=== PATIENT | female | born 1945 | race Caucasian/White ===

== ENCOUNTER 2020-07-12 13:25 | Outpatient (CLI) | payer MEDICARE, SELFPAY ==
[2020-07-12 13:52] LABS: Hematocrit 40.5 % (37.0-47.0)
== END 2020-07-12 13:26 | disposition home or self-care (01) ==
PROVIDERS: Anesthesiology; PCP Emergency Medicine; Visit Provider Urology
DX: R32 Unspecified urinary incontinence (principal); D64.9 Anemia, unspecified
CPT/HCPCS: 36415; 85014; 85018; 87086

== ENCOUNTER 2020-07-16 00:16 | Outpatient (CLI) | payer MEDICARE, SELFPAY ==
[2020-07-16 18:02] LABS: SARS-CoV-2 RNA PCR Negative
== END 2020-07-16 00:17 | disposition home or self-care (01) ==
LOC: ANHCOVIDDT 00:16
PROVIDERS: PCP Emergency Medicine; Visit Provider Urology
DX: Z01.812 Encounter for preprocedural laboratory examination (principal); Z20.828 Contact with and (suspected) exposure to other viral communicable diseases
CPT/HCPCS: 87635; C9803; U0003

== ENCOUNTER 2020-07-19 01:21 | Day surgery (SDC) | payer MEDICARE, SELFPAY ==
[2020-07-07 11:22] VITALS: BMI 41.8
--- NOTE | 2020-07-18 17:19 | PM.IMHP ---
H&P: HPI History of Present Illness Date/Time: 07/18/20 17:19 Chief complaint: ISD Narrative: Dawn García is a 75 year old female with ISD type incontinence as well as OAB Review of Systems Review of Systems: All systems reviewed & are unremarkable except as noted in HPI and below PMFSH Social History Social History Smoking status: Never smoker Alcohol intake: current Spiritual care concerns: No Meds Home Medications and Allergies Home Medications Medication Instructions Recorded Confirmed Type acetaminophen [Tylenol] 325 mg PO PRN PRN 07/07/20 07/07/20 History aspirin 81 mg PO DAILY 07/07/20 07/07/20 History atenolol 50 mg PO QAM 07/07/20 07/07/20 History chlorthalidone 25 mg QAM 07/07/20 07/07/20 History cholecalciferol (vitamin D3) 50 mcg PO DAILY 07/07/20 07/07/20 History duloxetine [Cymbalta] 60 mg PO BID 07/07/20 07/07/20 History esomeprazole magnesium [Nexium] 20 mg PO DAILY 07/07/20 07/07/20 History ferrous sulfate 325 mg PO HS 07/07/20 07/07/20 History gabapentin 300 mg PO TID 07/07/20 07/07/20 History hydroxychloroquine 200 mg PO BID 07/07/20 07/07/20 History leflunomide [Arava] 20 mg PO DAILY 07/07/20 07/07/20 History levothyroxine 50 mcg PO DAILY 07/07/20 07/07/20 History losartan 100 mg PO HS 07/07/20 07/07/20 History lutein-zeaxanthin 1 cap PO QAM 07/07/20 07/07/20 History methocarbamol 500 mg PO TID 07/07/20 07/07/20 History peg 400-propylene glycol (PF) 1 drp OPHTHALMIC (EYE) TID 07/07/20 07/07/20 History [Systane (PF)] simvastatin 40 mg PO HS 07/07/20 07/07/20 History tramadol 25 mg PO PRN PRN 07/07/20 07/07/20 History Allergies Allergy/AdvReac Type Severity Reaction Status Date / Time ketorolac Allergy Unknown RED SKIN Verified 07/07/20 10:36 prochlorperazine Allergy Unknown CONVULSIONS Verified 07/07/20 10:36 Exam Const: General: no acute distress HENMT: Mouth: Yes moist mucous membranes Eyes: EOM: EOMs intact bilaterally Neck: Neck: supple Resp: Effort & Inspection: normal respiratory effort GI: GI Palp: Yes Soft to palpation Skin: General skin exam: normal color Neuro: Cognition (Neuro): normal cognition Extrem: General: normal to inspection Psych: Mental Status: mental status grossly normal Assessment and Plan Assessment and plan (1) Intrinsic (urethral) sphincter deficiency (ISD): Code(s): N36.42 - Intrinsic sphincter deficiency (ISD) Status: Acute Assessment and Plan: cystoscopy with bulking agent
[2020-07-19 06:36] VITALS: BP 118/83; PULSE 71; RESP 20; TEMP 35.9; O2SAT 100
--- NOTE | 2020-07-19 06:46 | WPDANESEPPF ---
Anes - Initial Pre Proc Eval Procedure: Operation Date: 07/19/20 07:30 Proposed Procedures p Cystoscopy with Bulking Agent - Devaughn Lake MD Date/Time: 07/19/20 06:46 Surgeon: Devaughn Lake MD Pre Op Diagnosis: ISD Patient Data Age: 75 Gender: F Height: 4 ft 8 in Weight: 84.54 kg Allergies Allergy/AdvReac Type Severity Reaction Status Date / Time ketorolac Allergy Unknown BRIGHT RED Verified 07/19/20 06:49 SKIN prochlorperazine Allergy Unknown CONVULSIONS Verified 07/19/20 06:49 Home Medications Medication Instructions Recorded Confirmed Type acetaminophen [Tylenol] 325 mg PO PRN PRN 07/07/20 07/07/20 History aspirin 81 mg PO DAILY 07/07/20 07/07/20 History atenolol 50 mg PO QAM 07/07/20 07/07/20 History chlorthalidone 25 mg QAM 07/07/20 07/07/20 History cholecalciferol (vitamin D3) 50 mcg PO DAILY 07/07/20 07/07/20 History duloxetine [Cymbalta] 60 mg PO BID 07/07/20 07/07/20 History esomeprazole magnesium [Nexium] 20 mg PO DAILY 07/07/20 07/07/20 History ferrous sulfate 325 mg PO HS 07/07/20 07/07/20 History gabapentin 300 mg PO TID 07/07/20 07/07/20 History hydroxychloroquine 200 mg PO BID 07/07/20 07/07/20 History leflunomide [Arava] 20 mg PO DAILY 07/07/20 07/07/20 History levothyroxine 50 mcg PO DAILY 07/07/20 07/07/20 History losartan 100 mg PO HS 07/07/20 07/07/20 History lutein-zeaxanthin 1 cap PO QAM 07/07/20 07/07/20 History methocarbamol 500 mg PO TID 07/07/20 07/07/20 History peg 400-propylene glycol (PF) 1 drp OPHTHALMIC (EYE) TID 07/07/20 07/07/20 History [Systane (PF)] simvastatin 40 mg PO HS 07/07/20 07/07/20 History tramadol 25 mg PO PRN PRN 07/07/20 07/07/20 History Patient hx anesthesia problems: none Family hx anesthesia problems: none PMF Past Medical History Medical History (Updated 07/19/20 @ 06:52 by Gus Pinon MD) Anxiety Fusion of spine HTN (hypertension) Hyperlipidemia Morbid obesity Pes planus of right foot Surgical History Surgical History (Updated 07/19/20 @ 06:48 by Gus Pinon MD) History of section History of total knee arthroplasty Family History Family History Sibling Family history of rheumatoid arthritis Family history of arthritis Family history of Parkinson's disease Mother Cerebrovascular accident Family history of arthritis Family history of malignant neoplasm of breast in first degree relative Father Family history of diabetes mellitus in first degree relative Other Hypertension Social History Social History Smoking status: Never smoker Alcohol intake: current Living arrangements: with family Spiritual care concerns: No Anes - Eval Final PreProcedure Day of Procedure 07/19/20 06:46 Patient weight: morbidly obese Heart: regular rate and rhythm Lungs: clear to auscultation Airway: Mallampati scale class II Neurological: alert and oriented Last oral intake: >/= 8 hours ASA classification: III Emergent: no Anesthetic plan: proceed Anesthesia type and monitoring: general GIVS Informed Consent: The patient's anesthetic plan and its attendant risks and benefits were discussed with the patient/family/POA. Questions were solicited and answers provided to the satisfaction of the patient/family/POA.
[2020-07-19] MEDS: LACTATED RINGERS 1,000 ML 30 ML IV CONT (06:58)
--- NOTE | 2020-07-19 07:19 | WPDHPUPDATE1 ---
History and Physical Update Update Date/Time: 07/19/20 07:19 History and Physical has been reviewed, including an updated exam of the patient. There are NO changes in the patient's condition. Risks, benefits, and alternatives have been discussed and questions answered. Patient agrees to proceed with procedure.
[2020-07-19] MEDS: ceFAZolin 2 GM/D5W 50 ML 2 GM/50 ML BAG IVPB (07:30)
[2020-07-19] MEDS: LIDOCAINE HCL 2% GEL UROJET 10 ML PKG MUCOUS MEM (07:41)
[2020-07-19 07:55] VITALS: BP 119/74; PULSE 60; RESP 16; O2SAT 99
--- NOTE | 2020-07-19 08:11 | PM.PROC ---
Procedure Note - Detailed Date of procedure: 07/19/20 Pre-op diagnosis: ISD Intrinsic sphincter deficiency Post-op diagnosis: same Procedure performed: Cystoscopy with implantation of suburethral implant material [id number] Description of procedure: She was correctly identified and informed consent was obtained. She was brought to the operating room. She was given mac anesthesia. She was placed in the dorsal lithotomy position. She was prepped and draped in a sterile fashion. A time-out performed. Cystoscopy revealed no tumors in the bladder and an open urethra consistent with intrinsic sphincter deficiency. I injected the bulking agent into the urethra at the 10:00 a.m. to o'clock and 6 o'clock position. There is excellent bulking effect. Her bladder was drained with a 12 Romansh red rubber catheter. The tissues were somewhat firm and had difficulty taking the bulking agent. I used a 1-1/2 syringes total. She was awakened and transferred to the PACU in stable condition. Implants: Macroplastique Anesthesia: MAC Surgeon: Devaughn Lake MD Drains: No Packing: No Pathology: none sent Complications: No immediate complications Condition: stable Disposition: PACU
[2020-07-19 08:25] VITALS: BP 152/81; PULSE 64; RESP 16
[2020-07-19 08:55] VITALS: BP 131/89; PULSE 63; RESP 18
[2020-07-19] MEDS: fentaNYL CITRATE INJ (*CRX) 100 MCG/2 ML VIAL 25 MCG IV PUSH (08:55)
[2020-07-19 09:25] VITALS: BP 158/80; PULSE 59; RESP 16
== END 2020-07-19 09:56 | disposition home or self-care (01) ==
PROVIDERS: PCP Emergency Medicine; Visit Provider Urology
PROC: 3E0K8GC Introduction of Other Therapeutic Substance into Genitourinary Tract, Via Natural or Artificial Opening Endoscopic (ICD-10-PCS; CPT 51715; principal; 2020-07-19 07:30)
DX: N36.42 Intrinsic sphincter deficiency (ISD) (principal); N32.81 Overactive bladder; E66.01 Morbid (severe) obesity due to excess calories; Z68.41 Body mass index [BMI] 40.0-44.9, adult; I10 Essential (primary) hypertension; Z98.1 Arthrodesis status
CPT/HCPCS: 51715; A9270; J0690; J2250; J2405; J2704; J3010; J7120; L8606

== ENCOUNTER 2021-06-01 09:42 | Outpatient (CLI) | payer MEDICARE, SELFPAY ==
--- NOTE | ~2021-06-01 | MM_ITS ---
EXAMINATION: MM screening maral BI w oneil HISTORY: Screening TECHNIQUE: Craniocaudal and mediolateral oblique 3-D tomosynthesis images were obtained and synthetic 2-D images were generated. CAD analysis was submitted and interpreted. COMPARISON: Comparison to multiple prior studies sequentially, with oldest reviewed study dated 09/22. BREAST PARENCHYMAL COMPOSITION: There are scattered areas of fibroglandular density. FINDINGS: Stable architectural distortion of both breasts, consistent with previous breast reduction surgery. There is no evidence of suspicious mass, calcification, or architectural distortion to sugge st malignancy in either breast. There has been no suspicious interval change. IMPRESSION: 1. No mammographic evidence of malignancy. 2. Recommend routine screening mammography in one year. BI-RADS Category 1: Negative Reviewed, dictated and finalized at location A.
== END 2021-06-01 09:43 | disposition home or self-care (01) ==
LOC: ANHIMG 09:45
PROVIDERS: PCP Emergency Medicine; Visit Provider Emergency Medicine
DX: Z12.31 Encounter for screening mammogram for malignant neoplasm of breast (principal)
CPT/HCPCS: 77063; 77067

== ENCOUNTER 2021-09-02 08:58 | Outpatient (CLI) | payer MEDICARE, SELFPAY ==
[2021-09-02 09:56] LABS: Hematocrit 36.2 % (37.0-47.0)
[2021-09-02 10:06] LABS: Anion Gap 10 mmol/L (8-16); Blood Urea Nitrogen 36 mg/dL (7-17); Calcium 10.1 mg/dL (8.4-10.2); Carbon Dioxide 33 mmol/L (22-30); Chloride 98 mmol/L (98-107); Estimated Glomerular Filt Rate 31; Glucose 151 mg/dL (65-110); Potassium 3.6 mmol/L (3.4-5.0); Sodium 141 mmol/L (137-145)
== END 2021-09-02 08:59 | disposition home or self-care (01) ==
LOC: ANHSURGERY 09:03
PROVIDERS: Anesthesiology; PCP Emergency Medicine; Visit Provider Urology
DX: Z01.812 Encounter for preprocedural laboratory examination (principal); N63.42 Unspecified lump in left breast, subareolar; Z51.81 Encounter for therapeutic drug level monitoring; Z79.899 Other long term (current) drug therapy; D64.9 Anemia, unspecified
CPT/HCPCS: 36415; 80048; 85014; 85018; 87086; 87088

== ENCOUNTER 2021-09-09 00:30 | Day surgery (SDC) | payer MEDICARE, SELFPAY ==
[2021-08-29 08:14] VITALS: BMI 40.9
--- NOTE | 2021-08-29 08:22 | PC.NURSE ---
Addendum entered by Mary Ann Souza RN 08/29/21 08:29: PT ALSO TO TAKE LEVOTHYROXINE AM OF SURGERY Addendum entered by Mary Ann Souza RN 08/29/21 08:26: PT TO TAKE ATENOLOL, DULOXETINE, GABAPENTIN, & TYLENOL, TRAMADOL IF NEEDED Original Note: Report to the Outpatient Waiting Room, entrance under the green pavilion located off [facility], at time _0830__ on date _09/09/21_. OR Time: __0__. - You and your visitor will be asked a series of questions to screen for COVID 19 for your protection. - A mask is required within the hospital. - Only one visitor is allowed at this time. Patient visitors will be guided where to wait when not with patient. Preoperative COVID Testing Requirements: No COVID Test needed if: (proof is required; if not received patient will have Rapid Test prior to entry) - Patient has received COVID Vaccine at least 14 days prior to procedure date or - Patient has positive COVID test result within last 90 days of surgery date. COVID Test needed if above criteria is not met If not COVID vaccinated a COVID test must be conducted within 72 hours of surgery and patient is asked to isolate self from time of testing until procedure. You will go to the [facility] for your COVID testing. [facility] is located at the corner of [address] [facility]. You will only be called if COVID results are positive and your surgeon may reschedule your elective surgery date. Patients may have clear liquids (water, carbonated beverages, clear teas, apple juice) until 3 hours prior to surgery with a maximum of 20 ounces. - No food from midnight until time of surgery - Infants may have breast milk until 4 hours before surgery, infant formula 6 hours prior to surgery. - Children will be allowed to drink immediately following surgery. If applicable, please bring a bottle or sippy cup to assist with drinking. Juice, water, soda, and popsicles are readily available. For infants on formula, please bring formula the day of surgery. Pacifiers are allowed. Take the following medications with a SIP of water the morning of surgery: Medications to discontinue per physician __ASPIRIN-7 DAYS PRIOR TO SURGERY,_ALL VITAMINS AND SUPPLEMENTS - 3 DAYS PRIOR TO SURGERY____ Date to take last dose__09/01/21 & 09/06/21 Please no make-up, nail yi, hairspray, perfume, deodorant, or body powder the day of surgery. No jewelry (including any body piercings) or valuables the day of surgery, leave them at home. Please take a shower or bath the night before, or the morning of, surgery with an antibacterial soap. Wear comfortable, loose fitting clothing. Children are encouraged to wear pajamas. - Jewelry must be removed prior to entering the operating room. Rings and piercings that are not removed may be cut off. - The hospital will not accept responsibility for valuables. - Please leave all valuables, including medications, at home the day of surgery. If you are going home after surgery, a licensed highway truck driver must drive you home. - NO public transportation without another adult. - We recommend that an adult stay with you for 24 hours following discharge. - We also recommend that you do not drive, make important decision, drink alcoholic beverages, or take any drugs that were not prescribed by your health care provider for at least 24 hours after your discharge time. For Pediatric surgeries, we recommend two adults accompany the child home (only one inside the building at this time). Follow any additional instructions given to you from your surgeon. Telephone instructions given to __PT____and asked if any additional questions and then verbalized understanding. Patient advised to call surgeon office or pre surgery nurse liaison [phone] if any additional questions.
--- NOTE | 2021-09-03 10:25 | PM.IMHP ---
H&P: HPI History of Present Illness Date/Time: 09/03/21 10:25 76-year-old female with mixed incontinence. 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 She has had a bulking agent in the past. She had some benefit. She noted 50% improvement in stress incontinence. she is here for a repeat bulking agent. understands the effectiveness and risks of need for catheterization Chief Complaint: intrinsic sphincter deficiency Review of Systems Review of Systems: All systems reviewed & are unremarkable except as noted in HPI and below PMFSH Past Medical History Medical History Anxiety Fusion of spine HTN (hypertension) Hyperlipidemia Morbid obesity Pes planus of right foot Surgical History Surgical History History of section History of total knee arthroplasty Family History Family History Sibling Family history of rheumatoid arthritis Family history of arthritis Family history of Parkinson's disease Mother Cerebrovascular accident Family history of arthritis Family history of malignant neoplasm of breast in first degree relative Father Family history of diabetes mellitus in first degree relative Other Hypertension Social History Social History Smoking status: Never smoker Second hand tobacco smoke exposure: No Alcohol intake: never Substance use: never Substance use type: does not use Additional living arrangements comments: LIVES WITH SPOUSE MARCO A [phone] Spiritual care concerns: No Meds Home Medications and Allergies Home Medications Medication Instructions Recorded Confirmed Type Systane (PF) 1 drp OPHTHALMIC (EYE) TID 07/07/20 08/29/21 History acetaminophen [Tylenol] 325 mg PO PRN PRN 07/07/20 08/29/21 History aspirin 81 mg PO DAILY 07/07/20 08/29/21 History atenolol 50 mg PO QAM 07/07/20 08/29/21 History chlorthalidone 25 mg QAM 07/07/20 08/29/21 History cholecalciferol (vitamin D3) 50 mcg PO DAILY 07/07/20 08/29/21 History duloxetine [Cymbalta] 60 mg PO BID 07/07/20 08/29/21 History esomeprazole magnesium [Nexium] 20 mg PO DAILY 07/07/20 08/29/21 History ferrous sulfate 325 mg PO HS 07/07/20 08/29/21 History gabapentin 300 mg PO TID 07/07/20 08/29/21 History hydroxychloroquine 200 mg PO BID 07/07/20 08/29/21 History leflunomide [Arava] 20 mg PO DAILY 07/07/20 08/29/21 History levothyroxine 50 mcg PO DAILY 07/07/20 08/29/21 History losartan 100 mg PO HS 07/07/20 08/29/21 History lutein-zeaxanthin 1 cap PO QAM 07/07/20 08/29/21 History methocarbamol 500 mg PO TID 07/07/20 08/29/21 History simvastatin 40 mg PO HS 07/07/20 08/29/21 History tramadol 25 mg PO PRN PRN 07/07/20 08/29/21 History phenazopyridine [Pyridium] 200 mg PO TID PRN #30 tablet 07/19/20 08/29/21 Rx zinc 50 mg PO DAILY 08/29/21 08/29/21 History Allergies Allergy/AdvReac Type Severity Reaction Status Date / Time ketorolac Allergy Unknown BRIGHT RED Verified 08/29/21 08:01 SKIN prochlorperazine Allergy Unknown CONVULSIONS Verified 08/29/21 08:01 Exam Narrative: no acute distress normal breathing fixed urethra Assessment and Plan Assessment and plan (1) Intrinsic (urethral) sphincter deficiency (ISD): Code(s): N36.42 - Intrinsic sphincter deficiency (ISD) Status: Acute Assessment and Plan: repeat bulking agent (2) Urge incontinence: Code(s): N39.41 - Urge incontinence Status: Acute Assessment and Plan: she gets Botox for this in the office
--- NOTE | 2021-09-09 07:19 | WPDHPUPDATE1 ---
History and Physical Update Update Date/Time: 09/09/21 07:19 History and Physical has been reviewed, including an updated exam of the patient. There are NO changes in the patient's condition. Risks, benefits, and alternatives have been discussed and questions answered. Patient agrees to proceed with procedure.
[2021-09-09 08:52] VITALS: BMI 43.7
--- NOTE | 2021-09-09 09:19 | WPDANESEPPF ---
Anes - Initial Pre Proc Eval Procedure: Operation Date: 09/09/21 10:30 Proposed Procedures p Cystoscopy with Bulking Agent Bulkamid - Devaughn Lake MD Date/Time: 09/09/21 09:19 Surgeon: Devaughn Lake MD Pre Op Diagnosis: intrinsic sphincter deficiency Patient Data Age: 76 Gender: F Height: 1.42 m Weight: 88.6 kg Allergies Allergy/AdvReac Type Severity Reaction Status Date / Time ketorolac Allergy Unknown BRIGHT RED Verified 08/29/21 08:01 SKIN prochlorperazine Allergy Unknown CONVULSIONS Verified 08/29/21 08:01 Home Medications Medication Instructions Recorded Confirmed Type Systane (PF) 1 drp OPHTHALMIC (EYE) TID 07/07/20 08/29/21 History acetaminophen [Tylenol] 325 mg PO PRN PRN 07/07/20 08/29/21 History aspirin 81 mg PO DAILY 07/07/20 09/09/21 History atenolol 50 mg PO QAM 07/07/20 09/09/21 History chlorthalidone 25 mg QAM 07/07/20 08/29/21 History cholecalciferol (vitamin D3) 50 mcg PO DAILY 07/07/20 09/09/21 History duloxetine [Cymbalta] 60 mg PO BID 07/07/20 09/09/21 History esomeprazole magnesium [Nexium] 20 mg PO DAILY 07/07/20 09/09/21 History ferrous sulfate 325 mg PO HS 07/07/20 09/09/21 History gabapentin 300 mg PO TID 07/07/20 09/09/21 History hydroxychloroquine 200 mg PO BID 07/07/20 08/29/21 History leflunomide [Arava] 20 mg PO DAILY 07/07/20 08/29/21 History levothyroxine 50 mcg PO DAILY 07/07/20 09/09/21 History losartan 100 mg PO HS 07/07/20 08/29/21 History lutein-zeaxanthin 1 cap PO QAM 07/07/20 08/29/21 History methocarbamol 500 mg PO TID 07/07/20 08/29/21 History simvastatin 40 mg PO HS 07/07/20 08/29/21 History tramadol 25 mg PO PRN PRN 07/07/20 09/09/21 History phenazopyridine [Pyridium] 200 mg PO TID PRN #30 tablet 07/19/20 08/29/21 Rx zinc 50 mg PO DAILY 08/29/21 09/09/21 History Patient hx anesthesia problems: none Family hx anesthesia problems: none Results Review: All pre-operative results and documents have been reviewed as part of the pre-operative evaluation. PMFSH Past Medical History Medical History Anxiety Fusion of spine HTN (hypertension) Hyperlipidemia Morbid obesity Pes planus of right foot Surgical History Surgical History History of section History of total knee arthroplasty Family History Family History Sibling Family history of rheumatoid arthritis Family history of arthritis Family history of Parkinson's disease Mother Cerebrovascular accident Family history of arthritis Family history of malignant neoplasm of breast in first degree relative Father Family history of diabetes mellitus in first degree relative Other Hypertension Social History Social History Smoking status: Never smoker Second hand tobacco smoke exposure: No Alcohol intake: never Substance use: never Substance use type: does not use Living arrangements: with family Additional living arrangements comments: LIVES WITH SPOUSE [facility] A [phone] Spiritual care concerns: No Anes - Eval Final PreProcedure Day of Procedure 09/09/21 09:19 Patient weight: morbidly obese Heart: regular rate and rhythm Lungs: clear to auscultation Airway: Mallampati scale class II Neurological: alert and oriented ASA classification: III Emergent: no Anesthetic plan: proceed Anesthesia type and monitoring: general GIVS and standard monitoring Results Review: All pre-operative results and documents have been reviewed as part of the pre-operative evaluation. Informed Consent: The patient's anesthetic plan and its attendant risks and benefits were discussed with the patient/family/POA. Questions were solicited and answers provided to the satisfaction of the patient/family/POA.
[2021-09-09] MEDS: LACTATED RINGERS 1,000 ML 30 ML IV CONT ×2 (09:20→10:47)
[2021-09-09] MEDS: ceFAZolin 2 GM/D5W 50 ML 2 GM/50 ML BAG IVPB (09:50)
--- NOTE | 2021-09-09 10:14 | P.OP_ITS ---
Procedure Note - Detailed Date of Procedure 09/09/21 Pre-op Diagnosis intrinsic sphincter deficiency Post-op Diagnosis same Procedure Performed Cystoscopy with suburethral injection of implant material [id number] Surgeon Devaughn Lake MD Anesthesia MAC Indications This is a patient with stress urinary incontinence due to intrinsic sphincter deficiency. They desires surgical correction. They understand the risk of bleeding, and infection, lack of efficacy, need for repeat procedures, obstructive voiding requiring catheterization. They agreed to proceed. This is a repeat procedure. The last procedure meter 50% better. She understands risks of bleeding, infection, lack of efficacy, need for catheteriza tion. She agrees to proceed Findings Open urethra consistent with intrinsic sphincter deficiency There was some bulking effect agent seen from previous procedures. Description of Procedure The patient was correctly identified and informed consent was obtained. They were brought to the operating room. They were given MAC anesthesia. They were placed in the dorsal lithotomy position. They were prepped and draped in a sterile fashion. A time-out performed. Cystoscopy revealed an open urethra consistent with intrinsic sphincter deficiency. I injected the bulking agent circumferentially around the urethra.. There was good bulking effect. The bladder was left full. They were awakened and transferred to the PACU in stable condition. Implants Urethral bulking agent Estimated Blood Loss 1 Drains No Packing No Pathology none sent Complications No immediate complications Condition stable Disposition PACU
[2021-09-09 10:21] VITALS: BP 82/46; PULSE 63; RESP 10; O2SAT 94
[2021-09-09 10:51] VITALS: BP 108/67; PULSE 72; RESP 14; O2SAT 97
[2021-09-09 11:21] VITALS: BP 128/76; PULSE 66; RESP 14; O2SAT 100
--- NOTE | 2021-09-09 11:42 | SUR.PHASEII ---
PT URINATED WITHOUT ISSUE. DISCHARGED HOME WITH DAUGHTER CAIO.
== END 2021-09-09 11:30 | disposition home or self-care (01) ==
PROVIDERS: PCP Emergency Medicine; Visit Provider Urology
PROC: 3E0K8GC Introduction of Other Therapeutic Substance into Genitourinary Tract, Via Natural or Artificial Opening Endoscopic (ICD-10-PCS; CPT 51715; principal; 2021-09-09 10:30)
DX: N36.42 Intrinsic sphincter deficiency (ISD) (principal); I10 Essential (primary) hypertension; E78.5 Hyperlipidemia, unspecified; F41.9 Anxiety disorder, unspecified; E66.01 Morbid (severe) obesity due to excess calories; Z68.41 Body mass index [BMI] 40.0-44.9, adult; Z79.82 Long term (current) use of aspirin
CPT/HCPCS: 51715; 36415; 80048; 85014; 85018; 87086; 87088; A9270; J0690; J2405; J2704; J3010; J7120; L8606